=== PATIENT | female | born 1930 | race Caucasian/White ===

== ENCOUNTER 2018-09-14 12:15 | Inpatient (IN) | payer MEDICARE, MEDICAID ==
[~2018-09-14] VITALS: Ht 162.6 cm; Wt 80.0 kg
[2018-09-14] MEDS ORDERED: normal saline 1000ML IV soln IVB ONE (12:20)
[2018-09-14 12:54] LABS: BASOPHILS % (AUTO) 0.5 % (0-1); EOSINOPHILS % (AUTO) 0.4 % (0-6); HEMATOCRIT 38.7 % (35.0-45.0); HEMOGLOBIN 12.8 g/dl (12.0-16.0); LYMPHOCYTES # (AUTO) 1.1 X10'3 (1.1-4.8); LYMPHOCYTES % (AUTO) 15.5 % (21-51); MEAN CORPUSCULAR HEMOGLOBIN 29.6 PG (27.0-31.0); MEAN CORPUSCULAR HGB CONC 33.1 g/dL (33.0-36.5); MEAN CORPUSCULAR VOLUME 89.3 FL (78-98); MEAN PLATELET VOLUME 7.8 FL (7.4-10.4); MONOCYTES # (AUTO) 0.7 X10'3 (0-0.9); MONOCYTES % (AUTO) 9.6 % (2-12); NEUTROPHILS # (AUTO) 5.2 X10'3 (1.8-7.7); PLATELET COUNT 256 X10'3 (140-440); RED BLOOD COUNT 4.34 X10'6 (4.20-5.60); RED CELL DISTRIBUTION WIDTH 14.3 % (11.5-14.5); WHITE BLOOD COUNT 7.1 X10'3 (4.5-11.0)
[2018-09-14 13:16] LABS: ALANINE AMINOTRANSFERASE 18 U/L (12-78); ALBUMIN 3.3 G/DL (3.4-5.0); ALKALINE PHOSPHATASE 69 IU/L (46-116); ANION GAP 8 (8-16); ASPARTATE AMINO TRANSFERASE 28 U/L (10-37); BILIRUBIN,TOTAL 0.4 MG/DL (0.1-1.0); BLOOD UREA NITROGEN 25 MG/DL (7-18); BUN/CREATININE RATIO 25.3 (6.6-38.0); CALCIUM 8.6 MG/DL (8.5-10.1); CHLORIDE 106 MMOL/L (99-107); CREATININE 0.99 MG/DL (0.40-0.90); GLUCOSE 99 MG/DL (70-104); SODIUM 143 MMOL/L (135-145); TOTAL PROTEIN 6.7 G/DL (6.4-8.2); TROPONIN I < 0.04 NG/ML (0.0-0.05); eGFR 53 ML/MIN
--- NOTE | 2018-09-14 13:50 | NUR ---
TC FROM DAUGHTER, SIVA. INFORMED OF MOM'S VISIT HERE TO THE ER TODAY. DAUGHTER LIVES IN [place]. SON, ZION JAMISON LIVES IN [place] AND WORKS FOR THE [employer]. CONTACT NUMBER FOR SIVA , LIVES IN [place], [place]
[2018-09-14] MEDS ORDERED: potassium Cl 20 mEq SR tablet PO STA (14:26)
[2018-09-14 16:21] LABS: CLARITY,URINE CLEAR (Clear); COLOR,URINE YELLOW (Yellow); GLUCOSE, URINE NEGATIVE (Neg); KETONES,URINE TRACE mg/dl (Neg); LEUKOCYTE ESTERASE ,URINE NEGATIVE (Neg); NITRITES, URINE NEGATIVE (Neg); OCCULT BLOOD,URINE MODERATE (Neg); PH,URINE 5.5 (4.8-8.0); PROTEIN,URINE 30 mg/dl (Neg); UROBILINOGEN,URINE 0.2 E.U/dL (0.2-1.0)
[2018-09-14 16:23] LABS: UA COLLECTION TYPE STRAIGHT CATH
[2018-09-14 16:26] LABS: MUCUS STRANDS MODERATE /LPF (Neg); SQUAMOUS EPITHELIAL CELL,UR FEW /LPF (FEW)
[2018-09-14] MEDS ORDERED: POTA20TA19 PO (16:26)
[2018-09-14 16:27] LABS: BACTERIA,URINE 1+ /HPF (Neg)
[2018-09-14] MEDS ORDERED: CEPH500C5 PO (16:30)
--- NOTE | 2018-09-14 17:08 | NUR ---
TC TO DAUGHTERSIVA TO INFORM OF DISCHARGE STATUS. DAUGHTER UNSURE IF PATIENT IS UNABLE TO GET IN HER HOUSE. WILL TRY TO CONTACT SON, WHO LIVES LOCALLY.
[2018-09-14] MEDS ORDERED: cephalexin 250mg capsule PO ONE (17:35)
--- NOTE | 2018-09-14 17:41 | NUR ---
DR. ALAMOFS INFORMED OF DISCHARGE STATUS AND THAT PATIENT IS UNABLE TO HAVE ANYONE STAY WITH HER ALIA. TC TO DAUGHTER, SIVA. SON, ZION IS UNABLE TO STAY WITH MOM ALIA DUE TO HIS OWN PERSONAL HEALTH STATUS. PATIENT WOULD BE GOING HOME ALONE AND CARING FOR HERSELF UNTIL TOMORROW. DISCUSSED PROBLEM WITH CHARGE NURSE.
[2018-09-14] MEDS ORDERED: OLAN5TAB5 PO (19:54)
[2018-09-14] MEDS ORDERED: MELO-102 PO (19:54)
[2018-09-14] MEDS ORDERED: ASPI-1265 PO (19:54)
[2018-09-14] MEDS ORDERED: AMYL1CAP56 PO (19:54)
[2018-09-14] MEDS ORDERED: SUCR1TAB PO (19:54)
--- NOTE | 2018-09-14 21:31 | NUR ---
pt placed on hospital bed for comfort
[2018-09-14] MEDS ORDERED: acetaminophen 325mg tablet PO PRN (21:50)
[2018-09-14] MEDS ORDERED: ondansetron/PF 4mg/2ml inj IV PRN (21:50)
[2018-09-14] MEDS ORDERED: magnesium hydroxide 30ml (MOM) UD suspension PO PRN (21:50)
[2018-09-14] MEDS ORDERED: mag hydrox/Alum hydrox/simeth 30ml oral suspension PO PRN (21:50)
--- NOTE | 2018-09-14 23:42 | NUR ---
RELIEVING RN FOR LUNCH, PT IS SLEEPING, RESP EVEN AND UNLABORED, EASILY AROUSEABLE, SKIN P/W/D, AFIB ON THE MONITOR WITH HR 80-90S,
[2018-09-15] MEDS: PROTEASE PO SCH ×3 (07:00→16:50)
[2018-09-15] MEDS: LIPASE PO SCH ×3 (07:00→16:50)
[2018-09-15] MEDS: sucralfate 1 gm tablet PO SCH ×3 (07:00→17:10)
[2018-09-15] MEDS: AMYLASE PO SCH ×3 (07:00→16:50)
[2018-09-15 08:11] LABS: BASOPHILS % (AUTO) 0.5 % (0-1); EOSINOPHILS # (AUTO) 0.2 X10'3 (0-0.9); EOSINOPHILS % (AUTO) 2.3 % (0-6); HEMATOCRIT 36.1 % (35.0-45.0); LYMPHOCYTES # (AUTO) 1.8 X10'3 (1.1-4.8); MEAN CORPUSCULAR HEMOGLOBIN 29.6 PG (27.0-31.0); MEAN CORPUSCULAR HGB CONC 33.3 g/dL (33.0-36.5); MEAN PLATELET VOLUME 7.6 FL (7.4-10.4); MONOCYTES # (AUTO) 0.8 X10'3 (0-0.9); MONOCYTES % (AUTO) 10.7 % (2-12); NEUTROPHILS # (AUTO) 4.9 X10'3 (1.8-7.7); NEUTROPHILS % (AUTO) 63.5 % (42-75); PLATELET COUNT 251 X10'3 (140-440); RED BLOOD COUNT 4.06 X10'6 (4.20-5.60); RED CELL DISTRIBUTION WIDTH 14.6 % (11.5-14.5); WHITE BLOOD COUNT 7.8 X10'3 (4.5-11.0)
[2018-09-15] MEDS: CefTRIAXone/D5W-Rocephin 1gm 50 ML IV SCH (08:14)
[2018-09-15] MEDS: heparin, porcine 5000 units/ml vial SQ SCH ×2 (08:14→20:01)
[2018-09-15] MEDS: aspirin 81mg tab.chew PO SCH (08:14)
[2018-09-15] MEDS: OLANZAPINE 5 MG TABLET PO SCH (08:15)
[2018-09-15 08:32] LABS: ALANINE AMINOTRANSFERASE 18 U/L (12-78); ALBUMIN 2.9 G/DL (3.4-5.0); ALKALINE PHOSPHATASE 60 IU/L (46-116); ANION GAP 8 (8-16); ASPARTATE AMINO TRANSFERASE 31 U/L (10-37); BILIRUBIN,TOTAL 0.4 MG/DL (0.1-1.0); BLOOD UREA NITROGEN 20 MG/DL (7-18); BUN/CREATININE RATIO 23.8 (6.6-38.0); CALCIUM 8.6 MG/DL (8.5-10.1); CHLORIDE 109 MMOL/L (99-107); CREATININE 0.84 MG/DL (0.40-0.90); GLUCOSE 78 MG/DL (70-104); SODIUM 145 MMOL/L (135-145); TOTAL CARBON DIOXIDE 27.7 MMOL/L (24-32); TOTAL PROTEIN 5.8 G/DL (6.4-8.2); eGFR 64 ML/MIN
[2018-09-15 08:34] LABS: POTASSIUM 2.8 MMOL/L (3.5-5.1)
[2018-09-15] MEDS ORDERED: potassium Cl 40MEQ/NS 500ml 500 ML IV PRN ×2 (08:55)
--- NOTE | 2018-09-15 08:55 | NUR ---
Patient just got here from ER. Patient's K level today is 2.8, result relayed to Dr. Reece. Received order to replace K per protocol
[2018-09-15 09:03] VITALS: BP 185/83
[2018-09-15 09:10] LABS: CREATINE KINASE 747 U/L (26-192)
[2018-09-15] MEDS: potassium Cl 20 mEq SR tablet PO PRN ×3 (09:11→20:01)
[2018-09-15 10:28] VITALS: BP 111/84
[2018-09-15 10:30] VITALS: BP 171/77
[2018-09-15] MEDS: normal saline 1000ml 1,000 ML IV SCH (10:46)
[2018-09-15 11:00] VITALS: BP 111/84
--- NOTE | 2018-09-15 12:07 | NUR ---
MRI screening form completed and faxed already. Patient answered the MRI questions, answers verified with the daughter Raven over the phone. Daughter Raven said patient had knee replacement surgery in the past- relayed this to MRI staff.
--- NOTE | 2018-09-15 13:11 | NUR ---
Spoke to Dr. Reece about patient's complaining of unable to lift her right arm and pain on the right upper arm up to the shoulder. I also let her know that I am still waiting for the MRI to be done
--- NOTE | 2018-09-15 16:49 | NUR ---
MRI of head and neck done. Echo done at bedside.
--- NOTE | 2018-09-15 17:03 | NUR ---
When I spoke to the daughter Raven this am, she said patient lives alone and that she is not sure if patient has protease, amylase, lipase capsules (own meds). Unable to given this meds because it was not available
--- NOTE | 2018-09-15 17:05 | NUR ---
Patient found sitting up at the edge of the bed, water spilled on the floor. Patient asked me if this is her "home". Reoriented patient that she is in the hospital. Tab alarm on. Risk of falling discussed with the patient, call light was within her reach. Encouraged patient to use her call light to call for assistance.
--- NOTE | 2018-09-15 18:13 | NUR ---
Problems reprioritized. Patient report given, questions answered & plan of care reviewed with Luis CARPENTER.
--- NOTE | 2018-09-15 18:14 | NUR ---
Patient in room NALLELY 347. I have received report from TYSON CARPENTER and had the opportunity to ask questions and assume patient care.
[2018-09-15 20:00] VITALS: BP_SYST 155; BP_SYST 159; BP_SYST 164; BP_DIAS 71; BP_DIAS 77; BP_DIAS 87
[2018-09-16] VITALS: BP 136/97
[2018-09-16] MEDS: potassium Cl 20 mEq SR tablet PO PRN (00:14)
[2018-09-16] MEDS: normal saline 1000ml 1,000 ML IV SCH (02:50)
[2018-09-16 05:23] LABS: BASOPHILS % (AUTO) 0.5 % (0-1); EOSINOPHILS # (AUTO) 0.2 X10'3 (0-0.9); EOSINOPHILS % (AUTO) 1.8 % (0-6); HEMATOCRIT 36.5 % (35.0-45.0); HEMOGLOBIN 12.3 g/dl (12.0-16.0); LYMPHOCYTES # (AUTO) 1.8 X10'3 (1.1-4.8); LYMPHOCYTES % (AUTO) 18.2 % (21-51); MEAN CORPUSCULAR HEMOGLOBIN 29.7 PG (27.0-31.0); MEAN CORPUSCULAR HGB CONC 33.7 g/dL (33.0-36.5); MEAN CORPUSCULAR VOLUME 88.1 FL (78-98); MEAN PLATELET VOLUME 8.1 FL (7.4-10.4); MONOCYTES % (AUTO) 10.1 % (2-12); NEUTROPHILS # (AUTO) 6.8 X10'3 (1.8-7.7); NEUTROPHILS % (AUTO) 69.4 % (42-75); PLATELET COUNT 264 X10'3 (140-440); RED BLOOD COUNT 4.14 X10'6 (4.20-5.60); RED CELL DISTRIBUTION WIDTH 14.3 % (11.5-14.5); WHITE BLOOD COUNT 9.8 X10'3 (4.5-11.0)
[2018-09-16 05:32] LABS: ALANINE AMINOTRANSFERASE 24 U/L (12-78); ALBUMIN 3.1 G/DL (3.4-5.0); ALKALINE PHOSPHATASE 66 IU/L (46-116); ANION GAP 9 (8-16); ASPARTATE AMINO TRANSFERASE 32 U/L (10-37); BILIRUBIN,TOTAL 0.6 MG/DL (0.1-1.0); BLOOD UREA NITROGEN 16 MG/DL (7-18); BUN/CREATININE RATIO 20.3 (6.6-38.0); CALCIUM 8.6 MG/DL (8.5-10.1); CHLORIDE 107 MMOL/L (99-107); CREATININE 0.79 MG/DL (0.40-0.90); GLUCOSE 97 MG/DL (70-104); POTASSIUM 3.5 MMOL/L (3.5-5.1); SODIUM 142 MMOL/L (135-145); TOTAL CARBON DIOXIDE 26.5 MMOL/L (24-32); TOTAL PROTEIN 6.3 G/DL (6.4-8.2); eGFR 69 ML/MIN
--- NOTE | 2018-09-16 06:33 | NUR ---
Patient in room NALLELY 347. I have received report from Luis CARPENTER and had the opportunity to ask questions and assume patient care.
[2018-09-16] MEDS: PROTEASE PO SCH ×3 (07:00→17:00)
[2018-09-16] MEDS: AMYLASE PO SCH ×3 (07:00→17:00)
[2018-09-16] MEDS: LIPASE PO SCH ×3 (07:00→17:00)
[2018-09-16 07:24] VITALS: BP 157/84
[2018-09-16 07:28] VITALS: BP_SYST 157; BP_SYST 160; BP_DIAS 72; BP_DIAS 75; BP_DIAS 84
[2018-09-16] MEDS: sucralfate 1 gm tablet PO SCH ×3 (07:31→17:28)
[2018-09-16] MEDS: heparin, porcine 5000 units/ml vial SQ SCH ×2 (07:31→20:08)
[2018-09-16] MEDS: aspirin 81mg tab.chew PO SCH (07:31)
[2018-09-16] MEDS: OLANZAPINE 5 MG TABLET PO SCH (07:31)
[2018-09-16] MEDS: CefTRIAXone/D5W-Rocephin 1gm 50 ML IV SCH (07:31)
[2018-09-16 11:26] VITALS: BP 169/86
--- NOTE | 2018-09-16 18:18 | NUR ---
Problems reprioritized. Patient report given, questions answered & plan of care reviewed with Luis CARPENTER.
--- NOTE | 2018-09-16 18:19 | NUR ---
Patient in room NALLELY 359. I have received report from ISRAEL CARPENTER and had the opportunity to ask questions and assume patient care.
[2018-09-16 19:00] VITALS: BP 178/84
[2018-09-16] MEDS: lactobacillus rhamnosus 10,000 MMU CELLS/CAPSULE PO SCH (20:07)
[2018-09-17] VITALS: BP 165/98
[2018-09-17 06:00] LABS: BASOPHILS % (AUTO) 0.5 % (0-1); EOSINOPHILS # (AUTO) 0.1 X10'3 (0-0.9); EOSINOPHILS % (AUTO) 0.9 % (0-6); HEMATOCRIT 36.1 % (35.0-45.0); HEMOGLOBIN 12.2 g/dl (12.0-16.0); LYMPHOCYTES % (AUTO) 20.1 % (21-51); MEAN CORPUSCULAR HEMOGLOBIN 29.8 PG (27.0-31.0); MEAN CORPUSCULAR HGB CONC 33.7 g/dL (33.0-36.5); MEAN CORPUSCULAR VOLUME 88.5 FL (78-98); MONOCYTES # (AUTO) 1.2 X10'3 (0-0.9); MONOCYTES % (AUTO) 11.9 % (2-12); NEUTROPHILS # (AUTO) 6.6 X10'3 (1.8-7.7); NEUTROPHILS % (AUTO) 66.6 % (42-75); PLATELET COUNT 239 X10'3 (140-440); RED BLOOD COUNT 4.08 X10'6 (4.20-5.60); RED CELL DISTRIBUTION WIDTH 14.1 % (11.5-14.5)
[2018-09-17 06:22] LABS: ANION GAP 9 (8-16); BLOOD UREA NITROGEN 10 MG/DL (7-18); CHLORIDE 104 MMOL/L (99-107); CREATININE 0.82 MG/DL (0.40-0.90); GLUCOSE 92 MG/DL (70-104); SODIUM 141 MMOL/L (135-145); TOTAL CARBON DIOXIDE 27.8 MMOL/L (24-32)
[2018-09-17 06:23] LABS: ALANINE AMINOTRANSFERASE 22 U/L (12-78); ALBUMIN/GLOBULIN RATIO 0.9 (1.1-1.5); ALKALINE PHOSPHATASE 65 IU/L (46-116); ASPARTATE AMINO TRANSFERASE 32 U/L (10-37); BILIRUBIN,TOTAL 0.8 MG/DL (0.1-1.0); BUN/CREATININE RATIO 12.2 (6.6-38.0); CALCIUM 8.8 MG/DL (8.5-10.1); TOTAL PROTEIN 6.3 G/DL (6.4-8.2); eGFR 66 ML/MIN
--- NOTE | 2018-09-17 06:39 | NUR ---
Problems reprioritized. Patient report given, questions answered & plan of care reviewed with JANI CARPENTER.
[2018-09-17 06:41] LABS: POTASSIUM 2.9 MMOL/L (3.5-5.1)
[2018-09-17] MEDS: AMYLASE PO SCH ×3 (07:00→17:00)
[2018-09-17] MEDS: LIPASE PO SCH ×3 (07:00→17:00)
[2018-09-17] MEDS: PROTEASE PO SCH ×3 (07:00→17:00)
[2018-09-17 08:00] VITALS: BP 165/80
[2018-09-17] MEDS: lactobacillus rhamnosus 10,000 MMU CELLS/CAPSULE PO SCH ×2 (08:56→20:26)
[2018-09-17] MEDS: CefTRIAXone/D5W-Rocephin 1gm 50 ML IV SCH (08:56)
[2018-09-17] MEDS: sucralfate 1 gm tablet PO SCH ×3 (08:56→17:00)
[2018-09-17] MEDS: aspirin 81mg tab.chew PO SCH (08:56)
[2018-09-17] MEDS: OLANZAPINE 5 MG TABLET PO SCH (08:57)
[2018-09-17] MEDS: lisinopril 10 MG tablet PO SCH (08:57)
[2018-09-17] MEDS: potassium Cl 20 mEq SR tablet PO PRN ×2 (08:57→20:27)
[2018-09-17] MEDS: heparin, porcine 5000 units/ml vial SQ SCH ×2 (08:58→20:28)
[2018-09-17 12:00] VITALS: BP 162/80
[2018-09-17] MEDS: normal saline 1000ml 1,000 ML IV SCH (17:15)
[2018-09-17 19:00] VITALS: BP 162/70
--- NOTE | 2018-09-17 23:55 | NUR ---
Called dr. Ambrosio regarding a fib & hr in 130's
[2018-09-18] VITALS: BP 155/98
--- NOTE | 2018-09-18 06:38 | NUR ---
Problems reprioritized. Patient report given, questions answered & plan of care reviewed with Sarah. Addendum: 09/18/18 at 0638 by Eliezer Murcia RN Amended: Links added.
[2018-09-18 07:00] VITALS: BP 146/59
[2018-09-18] MEDS: LIPASE PO SCH ×3 (07:00→17:00)
[2018-09-18] MEDS: PROTEASE PO SCH ×3 (07:00→17:00)
[2018-09-18] MEDS: AMYLASE PO SCH ×3 (07:00→17:00)
[2018-09-18 07:32] LABS: BASOPHILS % (AUTO) 0.3 % (0-1); EOSINOPHILS % (AUTO) 0 % (0-6); HEMATOCRIT 37.1 % (35.0-45.0); HEMOGLOBIN 12.7 g/dl (12.0-16.0); LYMPHOCYTES # (AUTO) 2.1 X10'3 (1.1-4.8); LYMPHOCYTES % (AUTO) 15.9 % (21-51); MEAN CORPUSCULAR HEMOGLOBIN 30.2 PG (27.0-31.0); MEAN CORPUSCULAR HGB CONC 34.2 g/dL (33.0-36.5); MEAN CORPUSCULAR VOLUME 88.4 FL (78-98); MEAN PLATELET VOLUME 8.2 FL (7.4-10.4); MONOCYTES # (AUTO) 2.2 X10'3 (0-0.9); MONOCYTES % (AUTO) 16.6 % (2-12); NEUTROPHILS # (AUTO) 8.8 X10'3 (1.8-7.7); NEUTROPHILS % (AUTO) 67.2 % (42-75); PLATELET COUNT 248 X10'3 (140-440); RED BLOOD COUNT 4.19 X10'6 (4.20-5.60); RED CELL DISTRIBUTION WIDTH 14.2 % (11.5-14.5); WHITE BLOOD COUNT 13.1 X10'3 (4.5-11.0)
[2018-09-18] MEDS: CefTRIAXone/D5W-Rocephin 1gm 50 ML IV SCH (07:56)
[2018-09-18 08:01] LABS: ALANINE AMINOTRANSFERASE 20 U/L (12-78); ALBUMIN 2.6 G/DL (3.4-5.0); ALBUMIN/GLOBULIN RATIO 0.7 (1.1-1.5); ALKALINE PHOSPHATASE 58 IU/L (46-116); ANION GAP 10 (8-16); ASPARTATE AMINO TRANSFERASE 24 U/L (10-37); BILIRUBIN,TOTAL 0.7 MG/DL (0.1-1.0); BLOOD UREA NITROGEN 17 MG/DL (7-18); BUN/CREATININE RATIO 18.9 (6.6-38.0); CALCIUM 8.6 MG/DL (8.5-10.1); CHLORIDE 105 MMOL/L (99-107); GLUCOSE 93 MG/DL (70-104); POTASSIUM 3.2 MMOL/L (3.5-5.1); SODIUM 141 MMOL/L (135-145); TOTAL CARBON DIOXIDE 26.3 MMOL/L (24-32); TOTAL PROTEIN 6.2 G/DL (6.4-8.2); eGFR 59 ML/MIN
[2018-09-18] MEDS: aspirin 81mg tab.chew PO SCH (08:02)
[2018-09-18] MEDS: OLANZAPINE 5 MG TABLET PO SCH (08:02)
[2018-09-18] MEDS: lisinopril 10 MG tablet PO SCH (08:02)
[2018-09-18] MEDS: lactobacillus rhamnosus 10,000 MMU CELLS/CAPSULE PO SCH ×3 (08:02→20:20)
[2018-09-18] MEDS: sucralfate 1 gm tablet PO SCH ×3 (08:02→17:00)
[2018-09-18] MEDS: heparin, porcine 5000 units/ml vial SQ SCH ×3 (08:03→20:20)
[2018-09-18 09:38] LABS: TOTAL CELLS COUNTED 100
[2018-09-18 09:39] LABS: PLATELET ESTIMATE NORMAL
[2018-09-18 11:00] VITALS: BP 118/73
[2018-09-18] MEDS: normal saline 1000ml 1,000 ML IV SCH (14:10)
--- NOTE | 2018-09-18 15:57 | NUR ---
SS contacted pt's dtr- Raven in [place] and engaged her in dcp activities for pt. Per discussion, pt's dtr is open to having [place] placed in a facility in [place] if that was a possibility. SS explained that pt may need to apply for [place] [facility], pt's dtr consider this option and search for facilities there. Ss will continue to engage family in dcp activities. Addendum: 09/18/18 at 1610 by Montse Clemente SS Amended: Links added.
[2018-09-18] MEDS: metroNIDAZOLE-Flagyl 500mg/NS 100 ML IV SCH (17:17)
[2018-09-18] MEDS ORDERED: potassium Cl 20 mEq SR tablet PO PRN ×2 (17:55)
[2018-09-18] MEDS ORDERED: potassium Cl 40MEQ/NS 500ml 500 ML IV PRN (17:55)
--- NOTE | 2018-09-18 18:28 | NUR ---
Problems reprioritized. Patient report given, questions answered & plan of care reviewed with PAULINE Mueller.
[2018-09-18 19:00] VITALS: BP 129/60
[2018-09-18] MEDS: potassium Cl 40MEQ/NS 500ml 500 ML IV PRN (20:21)
[2018-09-19] VITALS: BP 142/81
[2018-09-19] MEDS: metroNIDAZOLE-Flagyl 500mg/NS 100 ML IV SCH ×4 (00:57→23:44)
[2018-09-19 05:51] LABS: BASOPHILS % (AUTO) 0.3 % (0-1); EOSINOPHILS % (AUTO) 0.1 % (0-6); HEMATOCRIT 35.1 % (35.0-45.0); HEMOGLOBIN 11.6 g/dl (12.0-16.0); LYMPHOCYTES # (AUTO) 1.6 X10'3 (1.1-4.8); LYMPHOCYTES % (AUTO) 11.5 % (21-51); MEAN CORPUSCULAR HEMOGLOBIN 29.3 PG (27.0-31.0); MEAN CORPUSCULAR HGB CONC 33.1 g/dL (33.0-36.5); MEAN CORPUSCULAR VOLUME 88.5 FL (78-98); MEAN PLATELET VOLUME 8.3 FL (7.4-10.4); MONOCYTES # (AUTO) 2.2 X10'3 (0-0.9); NEUTROPHILS # (AUTO) 10.5 X10'3 (1.8-7.7); NEUTROPHILS % (AUTO) 73.1 % (42-75); PLATELET COUNT 234 X10'3 (140-440); RED BLOOD COUNT 3.96 X10'6 (4.20-5.60); WHITE BLOOD COUNT 14.3 X10'3 (4.5-11.0)
[2018-09-19 06:06] LABS: ALANINE AMINOTRANSFERASE 18 U/L (12-78); ALBUMIN 2.4 G/DL (3.4-5.0); ALBUMIN/GLOBULIN RATIO 0.7 (1.1-1.5); ALKALINE PHOSPHATASE 55 IU/L (46-116); ANION GAP 9 (8-16); ASPARTATE AMINO TRANSFERASE 19 U/L (10-37); BILIRUBIN,TOTAL 0.6 MG/DL (0.1-1.0); BLOOD UREA NITROGEN 21 MG/DL (7-18); CALCIUM 8.7 MG/DL (8.5-10.1); CHLORIDE 105 MMOL/L (99-107); CREATININE 0.75 MG/DL (0.40-0.90); GLUCOSE 106 MG/DL (70-104); POTASSIUM 3.6 MMOL/L (3.5-5.1); SODIUM 138 MMOL/L (135-145); TOTAL CARBON DIOXIDE 23.7 MMOL/L (24-32); eGFR 73 ML/MIN
--- NOTE | 2018-09-19 06:51 | NUR ---
Problems reprioritized. Patient report given, questions answered & plan of care reviewed with JOVANY. Addendum: 09/19/18 at 0652 by Eliezer Murcia RN Amended: Links added.
[2018-09-19] MEDS: PROTEASE PO SCH ×3 (07:00→17:00)
[2018-09-19] MEDS: AMYLASE PO SCH ×3 (07:00→17:00)
[2018-09-19] MEDS: sucralfate 1 gm tablet PO SCH ×3 (07:00→17:00)
[2018-09-19] MEDS: LIPASE PO SCH ×3 (07:00→17:00)
[2018-09-19 07:40] VITALS: BP 149/68
[2018-09-19] MEDS: aspirin 81mg tab.chew PO SCH (07:51)
[2018-09-19] MEDS: OLANZAPINE 5 MG TABLET PO SCH (07:52)
[2018-09-19] MEDS: lisinopril 10 MG tablet PO SCH (07:52)
[2018-09-19] MEDS: lactobacillus rhamnosus 10,000 MMU CELLS/CAPSULE PO SCH ×2 (07:52→19:17)
[2018-09-19] MEDS: heparin, porcine 5000 units/ml vial SQ SCH ×2 (07:56→19:17)
[2018-09-19] MEDS: normal saline 1000ml 1,000 ML IV SCH ×2 (08:40→19:22)
--- NOTE | 2018-09-19 09:00 | NUR ---
corrections identification technician called. HR sustaining 130s-140s. notified.
[2018-09-19] MEDS: CefTRIAXone/D5W-Rocephin 1gm 50 ML IV SCH (09:01)
[2018-09-19 12:04] VITALS: BP 135/75
--- NOTE | 2018-09-19 14:22 | NUR ---
Initial: Pt admit s/p fall w/ severe dementia hx and acute metabolic encephalopathy. Possible aspiration PNA per MD note. PO 0-25% meals changed to full liquid diet since pt reports not eating solids at home; passed SL BSS. Per MD note pt family requesting hospice/comfort care at this time; code status yet to change. [facility] 09/16. Will monitor for changes in code status. Rec: 1. advance to regular diet per MD 2. monitor for changes in code status Addendum: 09/19/18 at [address] Amended: Links added.
--- NOTE | 2018-09-19 18:27 | NUR ---
Problems reprioritized. Patient report given, questions answered & plan of care reviewed with PAULINE GRACE.
--- NOTE | 2018-09-19 18:27 | NUR ---
Patient in room NALLELY 359. I have received report from Portia CARPENTER and had the opportunity to ask questions and assume patient care. No signs of distress. call light in reach
[2018-09-19 20:00] VITALS: BP 128/61
[2018-09-20 00:10] VITALS: BP 159/76
--- NOTE | 2018-09-20 06:17 | NUR ---
Problems reprioritized. Patient report given, questions answered & plan of care reviewed with Portia RN. no signs of distress. resting, eyes closed. iv intact. call light in reach.
[2018-09-20] MEDS: PROTEASE PO SCH ×2 (07:00→11:17)
[2018-09-20] MEDS: AMYLASE PO SCH ×2 (07:00→11:17)
[2018-09-20] MEDS: LIPASE PO SCH ×2 (07:00→11:17)
[2018-09-20 07:30] VITALS: BP 141/72
[2018-09-20] MEDS: heparin, porcine 5000 units/ml vial SQ SCH (07:57)
[2018-09-20] MEDS: lactobacillus rhamnosus 10,000 MMU CELLS/CAPSULE PO SCH (07:57)
[2018-09-20] MEDS: OLANZAPINE 5 MG TABLET PO SCH (07:58)
[2018-09-20] MEDS: aspirin 81mg tab.chew PO SCH (07:58)
[2018-09-20] MEDS: lisinopril 10 MG tablet PO SCH (07:58)
[2018-09-20] MEDS: sucralfate 1 gm tablet PO SCH ×2 (07:58→11:17)
[2018-09-20] MEDS: metroNIDAZOLE-Flagyl 500mg/NS 100 ML IV SCH (07:59)
[2018-09-20] MEDS: CefTRIAXone/D5W-Rocephin 1gm 50 ML IV SCH (09:43)
[2018-09-20] MEDS: potassium Cl 40MEQ/NS 500ml 500 ML IV PRN (11:13)
[2018-09-20 11:55] VITALS: BP 125/68
[2018-09-20] MEDS ORDERED: acetaminophen 325mg tablet PO PRN (14:10)
[2018-09-20] MEDS ORDERED: LORazepam 2 mg/ml vial IV PRN (14:10)
[2018-09-20] MEDS ORDERED: morphine 10mg/ml inj. IV PRN (14:15)
[2018-09-20] MEDS: morphine 10mg/0.5ml (conc. morphine) oral syringe PO PRN (14:41)
--- NOTE | 2018-09-20 18:32 | NUR ---
Problems reprioritized. Patient report given, questions answered & plan of care reviewed with PAULINE Warner.
[2018-09-20] MEDS: docusate sod 100mg capsule PO SCH ×2 (19:05→19:13)
[2018-09-20 20:00] VITALS: BP 113/58
--- NOTE | 2018-09-21 06:15 | NUR ---
Problems reprioritized. Patient report given, questions answered & plan of care reviewed with Malini CARPENTER. no signs of distress, pt resting eyes closed.
--- NOTE | 2018-09-21 06:30 | NUR ---
Patient in room NALLELY 359. I have received report from PAULINE Warner and had the opportunity to ask questions and assume patient care. Patient resting comfortably at this time, call light and items of frequent use in reach of patient.
[2018-09-21 07:28] VITALS: BP 143/85
[2018-09-21] MEDS: docusate sod 100mg capsule PO SCH ×2 (10:06→20:00)
[2018-09-21] MEDS: OLANZAPINE 5 MG TABLET PO SCH (10:13)
--- NOTE | 2018-09-21 12:30 | NUR ---
Problems reprioritized. Patient report given, questions answered & plan of care reviewed with PAULINE Smith.
[2018-09-21 18:00] VITALS: BP 138/80
--- NOTE | 2018-09-21 18:18 | NUR ---
Problems reprioritized. Patient report given, questions answered & plan of care reviewed with PAULINE Warner.
--- NOTE | 2018-09-21 18:18 | NUR ---
Patient in room NALLELY 359. I have received report from Sarah CARPENTER and had the opportunity to ask questions and assume patient care.
[2018-09-21] MEDS: morphine 10mg/0.5ml (conc. morphine) oral syringe PO PRN (20:22)
--- NOTE | 2018-09-22 06:18 | NUR ---
Problems reprioritized. Patient report given, questions answered & plan of care reviewed with Yordy RN. no signs of distress. call light inreach. resting, eyes closed
--- NOTE | 2018-09-22 06:40 | NUR ---
Patient in room NALLELY 359. I have received report from Alana CARPENTER and had the opportunity to ask questions and assume patient care.
[2018-09-22 07:44] VITALS: BP 139/68
[2018-09-22] MEDS: docusate sod 100mg capsule PO SCH ×2 (08:00→20:27)
[2018-09-22] MEDS: OLANZAPINE 5 MG TABLET PO SCH (08:00)
[2018-09-22 19:00] VITALS: BP 154/75
--- NOTE | 2018-09-22 19:00 | NUR ---
Problems reprioritized. Patient report given, questions answered & plan of care reviewed with ILYA CARPENTER.
--- NOTE | 2018-09-22 19:01 | NUR ---
Patient in room NALLELY 359. I have received report from SAVANNAH CARPENTER and had the opportunity to ask questions and assume patient care.
--- NOTE | 2018-09-23 06:20 | NUR ---
Patient in room NALLELY 359. I have received report from Luis CARPENTER and had the opportunity to ask questions and assume patient care.
--- NOTE | 2018-09-23 06:21 | NUR ---
Problems reprioritized. Patient report given, questions answered & plan of care reviewed with TYSON CARPENTER.
[2018-09-23] MEDS: docusate sod 100mg capsule PO SCH ×2 (08:22→19:46)
[2018-09-23] MEDS: OLANZAPINE 5 MG TABLET PO SCH (08:22)
[2018-09-23 13:35] VITALS: BP 135/72
--- NOTE | 2018-09-23 15:58 | NUR ---
Sent a page message to Dr. Chandra about patient's last BM per record is 09/16/18, already on Colace, and that patient has poor appetite
--- NOTE | 2018-09-23 17:13 | NUR ---
Dr. Chandra called back regarding my page message in regards to patient's last BM was [address] Chandra said that if patient is not complaining of pain/discomfort from being constipated then we do not have to worry about it at this time
--- NOTE | 2018-09-23 18:26 | NUR ---
Problems reprioritized. Patient report given, questions answered & plan of care reviewed with Luis CARPENTER.
--- NOTE | 2018-09-23 18:27 | NUR ---
Patient in room NALLELY 359. I have received report from TYSON CARPENTER and had the opportunity to ask questions and assume patient care.
[2018-09-23 19:00] VITALS: BP 140/89
--- NOTE | 2018-09-24 06:14 | NUR ---
Patient in room NALLELY 359. I have received report from Luis CARPENTER and had the opportunity to ask questions and assume patient care.
--- NOTE | 2018-09-24 06:17 | NUR ---
Problems reprioritized. Patient report given, questions answered & plan of care reviewed with TYSON CARPENTER.
[2018-09-24 07:00] VITALS: BP 149/77
[2018-09-24] MEDS: OLANZAPINE 5 MG TABLET PO SCH (08:00)
[2018-09-24] MEDS: docusate sod 100mg capsule PO SCH ×2 (08:00→20:15)
--- NOTE | 2018-09-24 09:22 | NUR ---
Patient is too sleepy, will respond to pain though. Scheduled oral meds not given at this time Addendum: 09/24/18 at 0929 by Marquita Ortiz RN Dr. Chandra notified about unable to give the morning pills because patient is too sleepy
[2018-09-24 11:00] VITALS: BP 153/90
--- NOTE | 2018-09-24 13:56 | NUR ---
Reassessment: Noted that patient's code status has been changed to DNR with comfort care. LBM remains 09/16, pt with routine Colace however noted that pt is refusing at times per med list. Will continue to follow per comfort care protocol. Rec: 1. Monitor need for additional bowel care per comfort care measures Addendum: 09/24/18 at [address] Amended: Links added.
--- NOTE | 2018-09-24 15:15 | NUR ---
Patient seen by physical therapist today
--- NOTE | 2018-09-24 18:46 | NUR ---
Problems reprioritized. Patient report given, questions answered & plan of care reviewed with Haley CARPENTER
[2018-09-24 20:00] VITALS: BP 168/77
--- NOTE | 2018-09-24 21:45 | NUR ---
Patient in room NALLELY 359. I have received report from PAULINE Juárez and had the opportunity to ask questions and assume patient care. Addendum: 09/24/18 at 2145 by Haley Randall RN Amended: Links added.
--- NOTE | 2018-09-25 06:18 | NUR ---
Problems reprioritized. Patient report given, questions answered & plan of care reviewed with PAULINE Sandhu. Addendum: 09/25/18 at 0618 by Haley Randall RN Amended: Links added.
[2018-09-25 08:00] VITALS: BP 148/76
[2018-09-25] MEDS: docusate sod 100mg capsule PO SCH ×2 (08:00→19:10)
[2018-09-25] MEDS: OLANZAPINE 5 MG TABLET PO SCH (08:00)
[2018-09-25 12:00] VITALS: BP 115/76
[2018-09-25 20:00] VITALS: BP 120/78
--- NOTE | 2018-09-25 21:06 | NUR ---
Patient in room NALLELY 359. I have received report from PAULINE Sandhu and had the opportunity to ask questions and assume patient care. Addendum: 09/25/18 at 2109 by Haley Randall RN Amended: Links added.
--- NOTE | 2018-09-26 06:07 | NUR ---
Problems reprioritized. Patient report given, questions answered & plan of care reviewed with PAULINE Scales. Addendum: 09/26/18 at 0608 by Haley Randall RN Amended: Links added.
--- NOTE | 2018-09-26 06:59 | NUR ---
Patient in room NALLELY 359. I have received report from Haley CARPENTER and had the opportunity to ask questions and assume patient care.
[2018-09-26 08:00] VITALS: BP 147/84
[2018-09-26] MEDS: OLANZAPINE 5 MG TABLET PO SCH (09:38)
[2018-09-26] MEDS: docusate sod 100mg capsule PO SCH ×2 (09:40→20:00)
--- NOTE | 2018-09-26 18:30 | NUR ---
Problems reprioritized. Patient report given, questions answered & plan of care reviewed with PRABHAKAR CARPENTER.
[2018-09-26 19:00] VITALS: BP 113/83
--- NOTE | 2018-09-27 06:23 | NUR ---
Problems reprioritized. Patient report given, questions answered & plan of care reviewed with PAULINE Scales. Addendum: 09/27/18 at 0624 by Haley Randall RN Amended: Links added.
--- NOTE | 2018-09-27 06:56 | NUR ---
Patient in room NALLELY 359. I have received report from Haley CARPENTER and had the opportunity to ask questions and assume patient care.
[2018-09-27 07:49] VITALS: BP 142/55
[2018-09-27] MEDS: OLANZAPINE 5 MG TABLET PO SCH (10:31)
[2018-09-27] MEDS: docusate sod 100mg capsule PO SCH ×2 (10:34→21:27)
--- NOTE | 2018-09-27 15:22 | NUR ---
gerson bennett student removed rebecca mcnulty ate 75% of ice cream, no milk Addendum: 09/27/18 at 1523 by Cara Caceres STUDENT PETER Amended: Links added.
--- NOTE | 2018-09-27 18:45 | NUR ---
Problems reprioritized. Patient report given, questions answered & plan of care reviewed with Minal CARPENTER.
[2018-09-27 20:00] VITALS: BP 139/72
[2018-09-27] MEDS: morphine 10mg/ml inj. IV PRN (23:07)
[2018-09-28 08:00] VITALS: BP 143/75
[2018-09-28] MEDS: docusate sod 100mg capsule PO SCH ×2 (08:00→21:01)
[2018-09-28] MEDS: OLANZAPINE 5 MG TABLET PO SCH (10:41)
[2018-09-28 12:00] VITALS: BP 164/75
--- NOTE | 2018-09-28 13:54 | NUR ---
Patient is DNR with comfort care. [facility] 09/27. Will continue to follow per protocol. Addendum: 09/28/18 at [address] Amended: Links added.
[2018-09-28 20:00] VITALS: BP 152/76
[2018-09-28] MEDS: morphine 10mg/ml inj. IV PRN (21:01)
[2018-09-29 07:00] VITALS: BP 145/74
[2018-09-29] MEDS: docusate sod 100mg capsule PO SCH ×2 (08:42→20:00)
[2018-09-29] MEDS: OLANZAPINE 5 MG TABLET PO SCH (08:42)
[2018-09-29 13:58] VITALS: BP 114/73
--- NOTE | 2018-09-29 18:46 | NUR ---
Problems reprioritized. Patient report given, questions answered & plan of care reviewed with vini johnson.
[2018-09-29 19:00] VITALS: BP 118/76
--- NOTE | 2018-09-30 06:38 | NUR ---
Problems reprioritized. Patient report given, questions answered & plan of care reviewed with Zoya CARPENTER. Addendum: 09/30/18 at 0639 by Mirella Haney RN Amended: Links added.
[2018-09-30 07:00] VITALS: BP 167/98
[2018-09-30] MEDS: docusate sod 100mg capsule PO SCH ×2 (08:00→21:13)
[2018-09-30] MEDS: OLANZAPINE 5 MG TABLET PO SCH (08:00)
--- NOTE | 2018-09-30 18:12 | NUR ---
Problems reprioritized. Patient report given, questions answered & plan of care reviewed with NOE LIU RN.
--- NOTE | 2018-09-30 18:30 | NUR ---
Patient in room NALLELY 359. I have received report from VICKY CARPENTER and had the opportunity to ask questions and assume patient care.
[2018-09-30 20:00] VITALS: BP 121/62
--- NOTE | 2018-10-01 06:30 | NUR ---
Problems reprioritized. Patient report given, questions answered & plan of care reviewed with TYSON CARPENTER.
--- NOTE | 2018-10-01 06:37 | NUR ---
Patient in room NALLELY 359. I have received report from Lorraine CARPENTER and had the opportunity to ask questions and assume patient care.
[2018-10-01 07:00] VITALS: BP 132/51
[2018-10-01] MEDS: docusate sod 100mg capsule PO SCH ×2 (08:00→20:00)
[2018-10-01] MEDS: OLANZAPINE 5 MG TABLET PO SCH (08:00)
--- NOTE | 2018-10-01 09:24 | NUR ---
Patient too sleepy, will open eyes on command but will fall back to sleep. Unable to given oral medications
--- NOTE | 2018-10-01 10:33 | NUR ---
Paged Dr. Jose in regards to patient's peripheral IV that has been there for 3 weeks.
--- NOTE | 2018-10-01 18:30 | NUR ---
Patient in room NALLELY 359. I have received report from Marquita CARPENTER and had the opportunity to ask questions and assume patient care. Resting eyes closed respirations even.
--- NOTE | 2018-10-01 18:36 | NUR ---
Problems reprioritized. Patient report given, questions answered & plan of care reviewed with Melissa CARPENTER.
[2018-10-01 19:00] VITALS: BP 132/67
[2018-10-02 07:00] VITALS: BP 134/62
[2018-10-02] MEDS: docusate sod 100mg capsule PO SCH ×2 (08:00→20:25)
[2018-10-02] MEDS: OLANZAPINE 5 MG TABLET PO SCH (08:00)
--- NOTE | 2018-10-02 18:36 | NUR ---
I received report from Beth RN, I was able to ask question and assume care.
--- NOTE | 2018-10-02 18:36 | NUR ---
I have received report from Beth CARPENTER, was able to assme
--- NOTE | 2018-10-02 18:37 | NUR ---
Patient in room NALLELY 359. I have received report from EVELIO CARPENTER and had the opportunity to ask questions and assume patient care. Addendum: 10/02/18 at 1838 by Shahana Stout RN Amended: Links added.
--- NOTE | 2018-10-02 18:45 | NUR ---
Problems reprioritized. Patient report given, questions answered & plan of care reviewed with PAULINE Harkins.
--- NOTE | 2018-10-02 19:07 | NUR ---
pt resting eyes closed without changes at this time.
[2018-10-02 20:00] VITALS: BP 131/55
--- NOTE | 2018-10-02 21:00 | NUR ---
pt inc of urine and smear of stool. skin care done and turned. tolerated well and bed liens changed.
--- NOTE | 2018-10-02 23:00 | NUR ---
pt repositioned no changes. pure wicc in place and working.
[2018-10-03 00:01] VITALS: BP 112/68
--- NOTE | 2018-10-03 01:00 | NUR ---
resting no changes. appears comfortable turned.
--- NOTE | 2018-10-03 05:51 | NUR ---
Student documentation: I have reviewed and agree with all interventions, assessments performed and documented by Daija Ramos student.Student Medication Administration: For this medication-pass time frame, all medication were reviewed, dispensed, administered and documented per hospital policy by Daija Ramos student. Addendum: 10/03/18 at 0552 by Shahana Stout RN Amended: Links added.
--- NOTE | 2018-10-03 06:15 | NUR ---
Patient in room NALLELY 359. I have received report from Shahana CARPENTER and had the opportunity to ask questions and assume patient care.
--- NOTE | 2018-10-03 06:17 | NUR ---
Problems reprioritized. Patient report given, questions answered & plan of care reviewed with ISRAEL CARPENTER. Addendum: 10/03/18 at 0624 by Shahana Stout RN Amended: Links added.
[2018-10-03 07:22] VITALS: BP 129/68
[2018-10-03] MEDS: docusate sod 100mg capsule PO SCH ×2 (08:00→20:00)
[2018-10-03] MEDS: OLANZAPINE 5 MG TABLET PO SCH (08:00)
--- NOTE | 2018-10-03 18:19 | NUR ---
Problems reprioritized. Patient report given, questions answered & plan of care reviewed with Minal CARPENTER.
--- NOTE | 2018-10-03 18:24 | NUR ---
Student documentation: I have reviewed and agree with all interventions, assessments performed and documented by Willow Student Nurse. Student Medication Administration: For this medication-pass time frame, all medication were reviewed, dispensed, administered and documented per hospital policy by Willow Student Nurse.
[2018-10-03 20:00] VITALS: BP 113/62
--- NOTE | 2018-10-04 06:36 | NUR ---
Patient in room NALLELY 359. I have received report from Minal CARPENTER and had the opportunity to ask questions and assume patient care.
[2018-10-04 07:33] VITALS: BP 122/77
[2018-10-04] MEDS: docusate sod 100mg capsule PO SCH ×2 (07:47→20:00)
[2018-10-04] MEDS: OLANZAPINE 5 MG TABLET PO SCH (07:47)
[2018-10-04 11:26] VITALS: BP 132/64
--- NOTE | 2018-10-04 18:29 | NUR ---
Problems reprioritized. Patient report given, questions answered & plan of care reviewed with Mianl CARPENTER.
[2018-10-04 20:00] VITALS: BP 132/61
--- NOTE | 2018-10-05 06:37 | NUR ---
Report given to Annabella CARPENTER.
[2018-10-05 07:00] VITALS: BP 125/71
[2018-10-05] MEDS: OLANZAPINE 5 MG TABLET PO SCH (10:24)
[2018-10-05] MEDS: docusate sod 100mg capsule PO SCH ×2 (10:25→20:00)
--- NOTE | 2018-10-05 10:53 | NUR ---
Patient is DNR with comfort care. [facility] 10/03. Will continue to follow per protocol. Addendum: 10/05/18 at [address] Amended: Links added.
--- NOTE | 2018-10-05 18:27 | NUR ---
GAVE REPORT TO ERLIN Marie PT. RESTING COMFORTABLY IN STABLE CONDITION.
--- NOTE | 2018-10-05 18:38 | NUR ---
Patient in room NALLELY 359. I have received report from PAULINE Ornelas and had the opportunity to ask questions and assume patient care. Addendum: 10/05/18 at 1839 by Daria Barber RN Amended: Links added.
[2018-10-05 19:00] VITALS: BP 111/55
--- NOTE | 2018-10-06 06:23 | NUR ---
Problems reprioritized. Patient report given, questions answered & plan of care reviewed with PAULINE Nayak.
--- NOTE | 2018-10-06 06:25 | NUR ---
Patient in room NALLELY 359. I have received report from PAULINE Cano and had the opportunity to ask questions and assume patient care. patient resting comfortably at this time. Call light and item of frequent use in reach of patient.
[2018-10-06 07:39] VITALS: BP 121/59
[2018-10-06] MEDS: OLANZAPINE 5 MG TABLET PO SCH (08:00)
[2018-10-06] MEDS: docusate sod 100mg capsule PO SCH ×2 (08:00→20:00)
--- NOTE | 2018-10-06 18:18 | NUR ---
Patient in room NALLELY 359. I have received report from PAULINE Nayak and had the opportunity to ask questions and assume patient care. Addendum: 10/06/18 at 1818 by Daria Barber RN Amended: Links added.
--- NOTE | 2018-10-06 18:27 | NUR ---
Problems reprioritized. Patient report given, questions answered & plan of care reviewed with PAULINE Cano.
[2018-10-06 20:00] VITALS: BP 148/54
--- NOTE | 2018-10-07 06:44 | NUR ---
Problems reprioritized. Patient report given, questions answered & plan of care reviewed with PAULINE Webb.
[2018-10-07 07:00] VITALS: BP 137/80
[2018-10-07] MEDS: OLANZAPINE 5 MG TABLET PO SCH (08:00)
[2018-10-07] MEDS: docusate sod 100mg capsule PO SCH ×2 (08:00→20:00)
[2018-10-07] MEDS: morphine 10mg/0.5ml (conc. morphine) oral syringe PO PRN (14:25)
--- NOTE | 2018-10-07 14:38 | NUR ---
PATIENT C/O PAIN GIVEN ROXANOL 10MG AND REPOSITIONED WILL CONTINUE TO MONITOR
--- NOTE | 2018-10-07 18:24 | NUR ---
Patient in room NALLELY 359. I have received report from PAULINE Webb and had the opportunity to ask questions and assume patient care.
--- NOTE | 2018-10-07 18:33 | NUR ---
Problems reprioritized. Patient report given, questions answered & plan of care reviewed with ERLIN Beltran RN. QUIET SHIFT WITH PATIENT ROXANOL GIVEN X2. TWO HOURLY TURNS DONE .
[2018-10-07 20:00] VITALS: BP 122/63
--- NOTE | 2018-10-07 22:22 | NUR ---
called dr. das, about pt not having a BM, last BM per records was 09/27, pt refusing PO intake, wants AM hospitalist to address the issues
--- NOTE | 2018-10-08 06:36 | NUR ---
Patient in room NALLELY 359. I have received report from Rachael Beltran RN and had the opportunity to ask questions and assume patient care.
--- NOTE | 2018-10-08 06:42 | NUR ---
Problems reprioritized. Patient report given, questions answered & plan of care reviewed with PAULINE Webb.
[2018-10-08 07:00] VITALS: BP 106/64
[2018-10-08] MEDS: OLANZAPINE 5 MG TABLET PO SCH (08:00)
[2018-10-08] MEDS: docusate sod 100mg capsule PO SCH (08:00)
[2018-10-08] MEDS: morphine 10mg/0.5ml (conc. morphine) oral syringe PO PRN ×2 (11:55→15:46)
--- NOTE | 2018-10-08 18:30 | NUR ---
Patient in room NALLELY 359. I have received report from PAULINE Webb and had the opportunity to ask questions and assume patient care.
--- NOTE | 2018-10-08 19:00 | NUR ---
Problems reprioritized. Patient report given, questions answered & plan of care reviewed with Pat RN.
[2018-10-08 19:30] VITALS: BP 117/51
[2018-10-08] MEDS: docusate sodium 100mg/10ml UD cup PO SCH (20:00)
--- NOTE | 2018-10-09 06:25 | NUR ---
Patient in room NALLELY 359. I have received report from Pat RN and had the opportunity to ask questions and assume patient care.
--- NOTE | 2018-10-09 06:30 | NUR ---
report given to PAULINE Webb
[2018-10-09 06:45] VITALS: BP 99/57
[2018-10-09] MEDS: OLANZAPINE 5 MG TABLET PO SCH (08:00)
[2018-10-09] MEDS: docusate sodium 100mg/10ml UD cup PO SCH ×2 (08:00→20:08)
--- NOTE | 2018-10-09 18:25 | NUR ---
Received report from PAULINE Webb. Patient is awake and alert on room air, in no apparent distress. Said she is thirsty. Gave some apple juice and water. Resting comfortably now. Call light and items of frequent use within reach. Will continue to monitor.
--- NOTE | 2018-10-09 18:34 | NUR ---
Roxanol given x1 patient mostly sleeping two hrly turns IDC draining concentrated urine. 175mls this shift. patient awoke several times and was coherent of speech Report given to Sarah CARPENTER
[2018-10-09 20:00] VITALS: BP 113/72
[2018-10-09] MEDS: morphine 10mg/0.5ml (conc. morphine) oral syringe PO PRN (20:07)
[2018-10-10] MEDS: morphine 10mg/0.5ml (conc. morphine) oral syringe PO PRN ×2 (03:06→19:40)
--- NOTE | 2018-10-10 07:14 | NUR ---
Patient in room NALLELY 359. I have received report from VAHE CARPENTER and had the opportunity to ask questions and assume patient care.
[2018-10-10] MEDS: docusate sodium 100mg/10ml UD cup PO SCH ×2 (08:00→19:40)
[2018-10-10] MEDS: OLANZAPINE 5 MG TABLET PO SCH (08:00)
--- NOTE | 2018-10-10 08:10 | NUR ---
PT IS SLEEPING, SHE IS NOT WANTING TO WAKE UP TO TAKE HER 0800 MEDS. I WILL TRY AGAIN IN A LITTLE WHILE
--- NOTE | 2018-10-10 18:13 | NUR ---
Received report from PAULINE Miles. Patient is awake and alert on room air, in no apparent distress. Call light and items of frequent use within reach. Will continue to monitor.
--- NOTE | 2018-10-10 18:14 | NUR ---
Problems reprioritized. Patient report given, questions answered & plan of care reviewed with VAHE CARPENTER.
[2018-10-10 19:00] VITALS: BP 131/78
--- NOTE | 2018-10-11 06:14 | NUR ---
Problems reprioritized. Patient report given, questions answered & plan of care reviewed with PAULINE Hololway.
--- NOTE | 2018-10-11 06:41 | NUR ---
Patient in room NALLELY 359. I have received report from Sarah CARPENTER and had the opportunity to ask questions and assume patient care.
[2018-10-11 07:38] VITALS: BP 105/60
[2018-10-11] MEDS: docusate sodium 100mg/10ml UD cup PO SCH ×2 (08:00→21:02)
--- NOTE | 2018-10-11 18:30 | NUR ---
Patient in room NALLELY 359. I have received report from Amie CARPENTER and had the opportunity to ask questions and assume patient care.
--- NOTE | 2018-10-11 19:03 | NUR ---
Problems reprioritized. Patient report given, questions answered & plan of care reviewed with Fozia CARPENTER.
[2018-10-11 20:00] VITALS: BP 133/62
[2018-10-11] MEDS: morphine 10mg/0.5ml (conc. morphine) oral syringe PO PRN (21:02)
[2018-10-12] MEDS: morphine 10mg/0.5ml (conc. morphine) oral syringe PO PRN (03:54)
--- NOTE | 2018-10-12 06:00 | NUR ---
Patient in room NALLELY 359. I have received report from Fozia CARPENTER and had the opportunity to ask questions and assume patient care.
--- NOTE | 2018-10-12 06:30 | NUR ---
Problems reprioritized. Patient report given, questions answered & plan of care reviewed with Amie CARPENTER.
[2018-10-12 07:47] VITALS: BP 108/54
[2018-10-12] MEDS: docusate sodium 100mg/10ml UD cup PO SCH (08:00)
[2018-10-12] MEDS ORDERED: MORP100S12 PO (09:50)
[2018-10-12] MEDS ORDERED: DOCU50LI22 PO (09:50)
--- NOTE | 2018-10-12 10:35 | NUR ---
[facility] F/C in place per MD order, patent and draining. Report called to [facility] with Melanie CARPENTER.
== END 2018-10-12 13:22 | disposition short-term general hospital (02) | DRG 557 ==
LOC: ER 12:16 → ED HOLD 21:46 → SUR 3N 09-15 08:43
PROVIDERS: ADMIT Internal Medicine; ATTEND Internal Medicine
DX: M62.82 Rhabdomyolysis (principal); G93.41 Metabolic encephalopathy; J18.9 Pneumonia, unspecified organism; N39.0 Urinary tract infection, site not specified; E86.0 Dehydration; E87.6 Hypokalemia; I48.2 Chronic atrial fibrillation; K21.9 Gastro-esophageal reflux disease without esophagitis; R29.6 Repeated falls; Z51.5 Encounter for palliative care; Z60.2 Problems related to living alone; E03.9 Hypothyroidism, unspecified; I11.0 Hypertensive heart disease with heart failure; I50.9 Heart failure, unspecified; F03.90 Unspecified dementia, unspecified severity, without behavioral disturbance, psychotic disturbance, mood disturbance, and anxiety; Z88.2 Allergy status to sulfonamides; Z91.018 Allergy to other foods; Z90.710 Acquired absence of both cervix and uterus; Z90.49 Acquired absence of other specified parts of digestive tract; Z79.82 Long term (current) use of aspirin; Z79.899 Other long term (current) drug therapy
CPT/HCPCS: 93306; 96360; 99285; P9612; 36415; 70544; 70547; 70551; 71045; 74230; 80053; 81001; 82550; 82607; 83880; 84132; 84443; 84484; 85025; 87070; 87088; 93005; 93880; 97110; 97116; 97161; 97530; G0378; J0696; J1644; J2270; J3480; J3490; J7030